=== PATIENT | female | born 1970 | race Two or more races ===

== ENCOUNTER 2017-10-14 18:49 | Emergency (ER) | payer MEDICAID ==
[~2017-10-14] VITALS: Ht 175.3 cm; Wt 88.5 kg
--- NOTE | 2017-10-14 18:44 | Emergency Room Report ---
History of Present Illness General Chief Complaint: Dyspnea/Respdistress Source: Patient, EMS Present Illness HPI 47-year-old female with known asthma brought in by EMS with suspected asthma exacerbation. Patient known asthmatic, nonsmoker, only on albuterol as needed for rescue med, took extra dose she had prednisone at home before calling EMS. Ran out of home albuterol recently. Just endorsing shortness of breath and chest tightness today, no recent URI symptoms or fever or chills or sick contacts. no previous intubation or hospitalization for asthma exacerbation Allergies: Coded Allergies: No Known Allergies (Unverified , 10/14/17) Patient History Past Medical History: asthma Past Surgical History: none Pertinent Family History: none Social History: Denies: smoking, alcohol use, drug use Last Menstrual Period: none anymore Now: No Immunizations: UTD Reviewed Nursing Documentation: PMH: Agreed Nursing Documentation-PMH Hx Hypertension: Yes Hx Asthma: Yes Review of Systems All Other Systems: negative except mentioned in HPI Physical Exam Vital Signs Date Time Temp Pulse Resp B/P (MAP) Pulse Ox O2 Delivery O2 Flow Rate FiO2 10/14/17 18:32 99.1 120 22 182/120 96 Room Air Sp02 EP Interpretation: reviewed, normal General Appearance: normal inspection, no apparent distress, alert, GCS 15, non -toxic, mild distress, other - [place] Head: normocephalic, atraumatic Eyes: bilateral eye fluoroscene uptake, bilateral eye EOMI ENT: normal ENT inspection, hearing grossly normal, normal voice Neck: normal inspection, full range of motion, supple, no bony tend Respiratory: normal inspection, decreased breath sounds, accessory muscle use, wheezing Cardiovascular #1: regular rate, rhythm, no edema Gastrointestinal: normal inspection, normal bowel sounds, non tender, soft, no guarding, no hernia Genitourinary: no CVA tenderness Musculoskeletal: normal inspection, back normal, normal range of motion, David' s Sign negative Neurologic: normal inspection, alert, oriented x3, responsive, cardiac catheterization technician III-XII nml as tested, speech normal Psychiatric: normal inspection, judgement/insight normal, mood/affect normal Skin: normal inspection, normal color, no rash Medical Decision Making Diagnostic Impression: Primary Impression: Dyspnea Qualified Codes: R06.00 - Dyspnea, unspecified Additional Impression: Asthma attack Qualified Codes: J45.21 - Mild intermittent asthma with (acute) exacerbation ER Course Patient with mild intermittent asthma presents with acute shortness of breath, found to be wheezing improving at time of arrival after EMS given albuterol Not tachypneic or hypoxic significant Improvement with BiPAP, additional nebs, IV magnesium, and terbutaline Chest x-ray not necessary as patient's lungs no clear to auscultation No fever very low suspicion for pneumonia refilled medications for patient ER course: Patient has remained stable during ED stay. Patient is to be discharged to home. Prescriptions given are albuterol MDI, albuterol nebulizer, prednisone Patient is instructed to follow up with their primary care doctor within 5 days. Strict return precautions discussed with patient such as fever, chills, worsening/severe pain, nausea, vomiting, which may indicate severe illness. Patient verbalizes understanding and agrees with plan. Please note that this Emergency Department Report was dictated using [employer] clerk technology software, occasionally this can lead to erroneous entry secondary to interpretation by the dictation equipment Chest X-Ray Diagnostic Results Chest X-Ray Diagnostic Results : Chest X-Ray Ordered: Yes # of Views/Limited/Complete: 1 View Indication: Shortness of Breath EP Interpretation: Yes Interpretation: no consolidation, no effusion, no pneumothorax, no acute cardiopulmonary disease Impression: No acute disease Electronically Signed by: Dr Yvette Duran MD Last Vital Signs Date Time Temp Pulse Resp B/P (MAP) Pulse Ox O2 Delivery O2 Flow Rate FiO2 10/14/17 18:32 99.1 120 22 182/120 96 Room Air Status: improved Disposition: HOME, SELF-CARE Scripts Prednisone* (PREDNISONE*) 20 Mg Tablet 40 MG ORAL DAILY for 5 Days, #10 TAB Prov: YVETTE DURAN M.D. 10/14/17 Albuterol Sulfate (VENTOLIN HFA) 18 Gm Hfa.aer.ad 1 PUFF INH EVERY 6 HOURS, #18 GM 0 Refills Prov: YVETTE DURAN M.D. 10/14/17 Albuterol Sulfate* (ALBUTEROL SULFATE HHN*) 2.5 Mg/3 Ml Vial.neb 2.5 MG HHN Q4H Y for Shortness of Breath, #25 VIAL Prov: YVETTE DURAN M.D. 10/14/17 YVETTE DURAN M.D. Oct 14, 2017 18:44
[~2017-10-14 18:49] MED LIST: PREDNISONE20 M1 PO; PREDNISONE5 M4 PO; Terbutaline 1mg/ml Inj SUBQ ONE
[2017-10-14 18:50] VITALS: BP 182/120
[2017-10-14] MEDS: Ipratropium 0.02% Inh Soln 2.5ml UD HHN SCH ×2 (18:56→19:08)
[2017-10-14] MEDS: Albuterol ud Inhalation HHN SCH ×2 (18:56→19:08)
[2017-10-14] MEDS ORDERED: PREDNISONE20 MG ORAL (19:22)
[2017-10-14] MEDS ORDERED: ALBUTEROL2.5 MG/3 M HHN (19:22)
[2017-10-14] MEDS ORDERED: VENTOLIN HFA18 GM INH (19:22)
[2017-10-14 20:07] VITALS: BP_SYST 147; BP_SYST 182; BP_DIAS 120; BP_DIAS 74
--- NOTE | 2017-10-17 11:02 | Diagnostic Imaging Report ---
Indication: SOB Technique: One view of the chest Comparison: none Findings: Lungs and pleural spaces are clear. Heart size is normal. Impression: No acute process
== END 2017-10-14 20:07 | disposition home or self-care (01) ==
LOC: EDBD 18:49 → EMR 19:19 → CANBEDREQ 19:21 → EMR 20:07
DX: J45.21 Mild intermittent asthma with (acute) exacerbation (principal); I10 Essential (primary) hypertension; R06.00 Dyspnea, unspecified
CPT/HCPCS: 71010; 94640; 94664; 96365; 96372; 99284